=== PATIENT | female | born 1960 | race Caucasian/White ===

== ENCOUNTER 2019-02-25 15:31 | Inpatient (IN) | payer MEDICARE, OTHER ==
[~2019-02-25] VITALS: Ht 175.3 cm; Wt 72.6 kg
[2019-02-25 16:31] LABS: BASOPHILS # (AUTO) 0.1 (0.0-0.1); BASOPHILS % 0.5 % (0.0-1.0); EOSINOPHILS # (AUTO) 0.1 (0.0-0.4); HEMATOCRIT 40.6 % (34.2-44.1); HEMOGLOBIN 13.2 g/dL (12.0-16.0); LYMPHOCYTES # (AUTO) 1.2 (1.0-3.2); LYMPHOCYTES % 10.8 % (18.0-39.1); MEAN CORPUSCULAR HGB CONC 32.5 g/dL (31-35); MEAN CORPUSCULAR VOLUME 95.3 fL (81-99); MONOCYTES % 9.1 % (4.4-11.3); NEUTROPHILS # (AUTO) 8.6 (2.1-6.9); NEUTROPHILS % 78.2 % (38.7-80.0); PLATELET COUNT 277 x10e3/uL (140-360); RED BLOOD COUNT 4.26 x10e6/uL (3.6-5.1); RED CELL DISTRIBUTION WIDTH 12.9 % (11.7-14.4)
[2019-02-25 16:40] LABS: LEUKOCYTE ESTERASE ,URINE NEGATIVE (NEGATIVE); NITRITE,URINE NEGATIVE (NEGATIVE); PROTEIN,URINE DIPSTICK NEGATIVE (NEGATIVE)
[2019-02-25 16:42] LABS: BILIRUBIN,URINE NEGATIVE (NEGATIVE); CLARITY,URINE SL CLOUDY (CLEAR); COLOR,URINE YELLOW (YELLOW); KETONES,URINE 1+ (NEGATIVE); URINE UROBILINOGEN 0.2 mg/dL (0.2 - 1)
[2019-02-25 16:44] LABS: PREGNANCY TEST, URINE NEGATIVE (NEGATIVE)
[2019-02-25 16:52] LABS: ALANINE AMINOTRANSFERASE 11 IU/L (0-55); ALBUMIN 3.7 g/dL (3.5-5.0); ALBUMIN/GLOBULIN RATIO 1.1 (0.8-2.0); ALKALINE PHOSPHATASE 80 IU/L (40-150); ANION GAP 13.7 mmol/L (8-16); BLOOD UREA NITROGEN 6 mg/dL (7-26); BUN/CREATININE RATIO 8 (6-25); CALCIUM 9.4 mg/dL (8.4-10.2); CARBON DIOXIDE 27 mmol/L (22-29); CHLORIDE 102 mmol/L (98-107); CREATININE, SERUM 0.74 mg/dL (0.57-1.11); EST GLOMERULAR FILTRATION RATE > 60 ML/MIN (60-); GLUCOSE 100 mg/dL (74-118); POTASSIUM 3.7 mmol/L (3.5-5.1); SODIUM 139 mmol/L (136-145)
[2019-02-25 17:00] LABS: BACTERIA,URINE MODERATE /HPF; EPITHELIAL CELLS,URINE MODERATE /LPF; RBC,URINE 0-5 /HPF (0-5)
[2019-02-25] MEDS ORDERED: LIDOCAINE 4% PATCH TP ONE (18:45)
[2019-02-25] MEDS ORDERED: BUPIVACAINE HCL 0.5% INJ 30 ML VIAL INJ ONE (18:45)
[2019-02-25] MEDS ORDERED: BUPIVACAINE HCL 0.5% 10ML MPF VIAL INJ ONE (18:50)
[2019-02-25] MEDS ORDERED: ONDANSETRON HCL INJ 2MG/ML 2ML 2 MG/ML VIAL IV STA (18:57)
[2019-02-25] MEDS ORDERED: MORPHINE SULFATE 2 MG/ML SYR 1ML IV ONE (18:57)
[2019-02-25] MEDS ORDERED: KETOROLAC TROMETHAMINE 30 MG/ML VIAL IV STA (18:57)
[2019-02-25] MEDS: ONDANSETRON HCL INJ 2MG/ML 2ML 2 MG/ML VIAL IV ONE ×2 (19:22→19:23)
[2019-02-25] MEDS: KETOROLAC TROMETHAMINE 30 MG/ML VIAL IV ONE ×2 (19:22→19:23)
--- NOTE | 2019-02-25 21:13 | Diagnostic Imaging Report ---
EXAM: CT Chest, Abdomen and Pelvis WITH contrast INDICATION: Back pain, shortness of breath COMPARISON: None. TECHNIQUE: Chest, abdomen and pelvis were scanned utilizing a multidetector helical scanner from the lung apex to the pubic symphysis before and after administration of IV contrast. Coronal and sagittal reformations were obtained. Routine protocol was performed. Scan was performed when during portal venous phase. Dose modulation, iterative reconstruction, and/or weight based adjustment of the mA/kV was utilized to reduce the radiation dose to as low as reasonably achievable. IV CONTRAST: 100 mL of Isovue-370 ORAL CONTRAST: None RADIATION DOSE: Total DLP: 614.47 mGy*cm Estimated effective dose: (DLP x 0.015 x size factor) mSv COMPLICATIONS: None FINDINGS: LINES and TUBES: None. LUNGS AND AIRWAYS: No focal pulmonary opacity. There is patchy groundglass opacity at the lung bases, greater on the right, which may represent small airway disease, air trapping or atelectasis. There is minimal pleural parenchymal scarring greater in the right apex. Trachea and main bronchi are clear. PLEURA: The pleural spaces are clear. HEART AND MEDIASTINUM: There is a 5 mm hypodensity in the left thyroid lobe. No mediastinal, hilar or axillary lymphadenopathy. The heart is normal in size.. No thoracic aortic aneurysm or dissection. Ascending aorta measures 3.0 cm, Main pulmonary artery 2.6 cm, normal. Although the examination does not appear to have been performed with PE protocol, there are filling defects seen at the bifurcations of the right and left main pulmonary arteries compatible with pulmonary emboli. HEPATOBILIARY: There is a somewhat ill-defined heterogeneous and partially enhancing mass in the posterior dome of the right lobe of the liver, measuring 6.4 x 6.4 x 4.4 cm. There is central low density suggesting sclerosis. No other hepatic masses are seen. No biliary ductal dilation. GALLBLADDER: No radio-opaque stones or sludge. No wall thickening. SPLEEN: No splenomegaly. PANCREAS: No focal masses or ductal dilatation. Hypodensity near the pancreatic head is likely related to the adjacent duodenum. ADRENALS: No adrenal nodules KIDNEYS/URETERS: Kidneys enhance symmetrically. No hydronephrosis. No cystic or solid mass lesions. No stones. GI TRACT: No abnormal distention, wall thickening, or evidence of bowel obstruction. Appendix is not specifically visualized. PELVIC ORGANS/BLADDER: Urinary bladder unremarkable. Uterine fundus is prominent, likely related fibroid uterus. LYMPH NODES: No dominant lymph node mass seen in the abdomen, retroperitoneum or pelvis. VESSELS: The abdominal aorta is unremarkable with no aneurysm or dissection. PERITONEUM / RETROPERITONEUM: No pneumoperitoneum or ascites. BONES: No acute or suspicious bony lesions. There is mild degenerative change lower lumbar spine. A small sclerotic focus is seen in the proximal right femur. SOFT TISSUES: Superficial surrounding soft tissue shows a 1.5 cm asymmetric density in the right breast (series 2, image 34).. Findings were discussed with Dr. Conway in the emergency room on 02/25/2019 at 9:05 PM. IMPRESSION: 1. Filling defects in the bilateral main pulmonary artery bifurcations compatible with pulmonary emboli. No dilatation of the main pulmonary artery or obvious evidence for right heart strain. 2. Indeterminate 6.4 cm mass in the right lobe of the liver concerning for neoplasm. 3. 1.5 cm asymmetric density in the right breast. This is of indeterminate significance but correlation with mammography is recommended. Signed by: Dr. Alberto Bazzi M.D. on 02/25/2019 9:10 PM
[2019-02-25] MEDS ORDERED: SODIUM CHLORIDE FLUSH 10 ML SYR INJ PRN (21:15)
[2019-02-25] MEDS ORDERED: HEPARIN SOD (PORCINE) 5,000 UNIT/ML VIAL IV ONE (21:15)
[2019-02-25] MEDS: HYDROMORPHONE 1MG/1ML INJ IV PRN (21:30)
[2019-02-25] MEDS: ONDANSETRON HCL INJ 2MG/ML 2ML 2 MG/ML VIAL IV PRN (21:30)
[2019-02-25 21:57] LABS: INR 0.94; PROTHROMBIN TIME 13.1 seconds (11.9-14.5)
[2019-02-25 21:58] LABS: PARTIAL THROMBOPLASTIN TIME 27.5 seconds (23.8-35.5)
[2019-02-25 22:19] LABS: CREATINE KINASE MB 0.7 ng/mL (0-5.0)
[2019-02-25] MEDS: HEPARIN 25,000 UNIT 1,200 UNIT in DEXTROSE 5% 250ML 250 ML IV SCH (22:28)
[2019-02-25] MEDS ORDERED: SODIUM CHLORIDE 0.9% 50ML 50 ML ONE (23:15)
[2019-02-25] MEDS ORDERED: IOPAMIDOL 370 MG/ML 200 ML INFUS..BTL INJ ONE (23:16)
[2019-02-26] MEDS: HYDROMORPHONE 1MG/1ML INJ IV PRN ×6 (00:42→21:31)
[2019-02-26 01:23] LABS: CREATINE KINASE MB 0.5 ng/mL (0-5.0)
[2019-02-26] MEDS ORDERED: ALBUTEROL SULFATE HFA 8GM INHALATION AEROSOL INH PRN (03:00)
[2019-02-26] MEDS: ALBUTEROL/IPRATROPIUM 3 ML NEB NEB PRN (03:30)
[2019-02-26 05:08] LABS: BASOPHILS # (AUTO) 0.1 (0.0-0.1); BASOPHILS % 0.4 % (0.0-1.0); EOSINOPHILS # (AUTO) 0.2 (0.0-0.4); HEMATOCRIT 35.3 % (34.2-44.1); HEMOGLOBIN 11.7 g/dL (12.0-16.0); LYMPHOCYTES # (AUTO) 1.6 (1.0-3.2); LYMPHOCYTES % 14.1 % (18.0-39.1); MEAN CORPUSCULAR HEMOGLOBIN 31.2 pg (28-32); MEAN CORPUSCULAR HGB CONC 33.1 g/dL (31-35); MEAN CORPUSCULAR VOLUME 94.1 fL (81-99); MONOCYTES # (AUTO) 1.4 (0.2-0.8); MONOCYTES % 12.6 % (4.4-11.3); NEUTROPHILS # (AUTO) 7.9 (2.1-6.9); NEUTROPHILS % 70.5 % (38.7-80.0); PLATELET COUNT 246 x10e3/uL (140-360); RED BLOOD COUNT 3.75 x10e6/uL (3.6-5.1); RED CELL DISTRIBUTION WIDTH 12.9 % (11.7-14.4)
[2019-02-26 05:34] LABS: ALANINE AMINOTRANSFERASE 9 IU/L (0-55); ALBUMIN 3.1 g/dL (3.5-5.0); ALBUMIN/GLOBULIN RATIO 1.1 (0.8-2.0); ALKALINE PHOSPHATASE 64 IU/L (40-150); ANION GAP 13.2 mmol/L (8-16); BLOOD UREA NITROGEN 7 mg/dL (7-26); BUN/CREATININE RATIO 10 (6-25); CALCIUM 8.8 mg/dL (8.4-10.2); CARBON DIOXIDE 25 mmol/L (22-29); CHLORIDE 102 mmol/L (98-107); CREATININE, SERUM 0.69 mg/dL (0.57-1.11); EST GLOMERULAR FILTRATION RATE > 60 ML/MIN (60-); GLUCOSE 117 mg/dL (74-118); POTASSIUM 3.2 mmol/L (3.5-5.1); SODIUM 137 mmol/L (136-145)
[2019-02-26] MEDS ORDERED: LORAZEPAM INJ 2 MG/ML VIAL IV PRN (05:45)
[2019-02-26] MEDS: ONDANSETRON HCL INJ 2MG/ML 2ML 2 MG/ML VIAL IV PRN ×5 (05:48→21:32)
[2019-02-26 06:06] LABS: INR 1.02; PROTHROMBIN TIME 13.9 seconds (11.9-14.5)
[2019-02-26 06:56] LABS: CREATINE KINASE MB 0.5 ng/mL (0-5.0)
[2019-02-26 07:04] LABS: PARTIAL THROMBOPLASTIN TIME > 200.0 seconds (23.8-35.5)
--- NOTE | 2019-02-26 07:05 | NUR ---
received report from off going nurse. patient heparin drip placed on hold for one hour and will rate decreased by 200 units, to run at 1000units then recheck levels in 6 hours per protcol.
--- NOTE | 2019-02-26 07:05 | NUR ---
Lab reports PTT >200, stopping Heparin at this time.
[2019-02-26] MEDS ORDERED: POTASSIUM CHLORIDE 20MEQ/100ML 100 ML IV ONE (11:00)
[2019-02-26] MEDS ORDERED: SODIUM CHLORIDE 0.9% 250ML 250 ML ONE (11:31)
[2019-02-26] MEDS ORDERED: ESTRADIOL1 MG PO (15:45)
[2019-02-26] MEDS ORDERED: SUCRALFATE1 GM PO (15:45)
[2019-02-26] MEDS ORDERED: PROGESTERONE100 MG PO (15:45)
[2019-02-26] MEDS ORDERED: ESCITALOPRAM OX10 MG PO (15:45)
[2019-02-26] MEDS ORDERED: NEXIUM40 MG PO (15:45)
[2019-02-26 15:50] VITALS: BP 104/62
--- NOTE | 2019-02-26 19:00 | NUR ---
Report and walking rounds completed, Patient in bed with spouse at bedside. Call light within reach. No issues or concerns at this time. Will continue to monitor.
[2019-02-26 20:00] VITALS: BP 102/57
[2019-02-26 21:10] VITALS: BP 102/57
[2019-02-26] MEDS: HEPARIN 25,000 UNIT 1,200 UNIT in DEXTROSE 5% 250ML 250 ML IV SCH (21:43)
[2019-02-26] MEDS ORDERED: HEPARIN 25,000 UNIT DRIP IV ONE (21:48)
--- NOTE | 2019-02-26 21:50 | NUR ---
Left message with answering service for Kari Becerra (Sheila) Patient requesting home meds for hormones ( patient reports missing dose has vaginal spotting), report vaginal bleeding and observed, PTT drawn, analyzer here is down and having to send sample to [facility] to be analyzed. Awaiting call back.
--- NOTE | 2019-02-26 22:10 | NUR ---
Lab called and stated that analyzer is down and sending PTT stat to [facility] for analysis. Will notify of delay in PTT results, awaiting call back
--- NOTE | 2019-02-26 22:24 | NUR ---
Dr Gardner paged through answering service. Awaiting call back.
--- NOTE | 2019-02-26 22:45 | NUR ---
Kari Becerra paged through answering service to notify of delay in PTT results, vaginal bleeding and on heparin.
--- NOTE | 2019-02-26 22:50 | NUR ---
Return call from Dr Gardner regarding vaginal bleeding ( on heparin for PE) and delay in PTT level due to analyzer if down, sent lab Stat to [facility], awaiting results. Continue to home hormones from home med list. Consult Dr Mcneil and Philly Zuluaga for vaginal bleeding.
--- NOTE | 2019-02-26 22:53 | NUR ---
Lab called and stated analyzer is up and working, if draw new PTT sample they will be able to run results.
[2019-02-27] VITALS (10 sets, daily range): BP systolic 91–120; BP diastolic 52–87
--- NOTE | 2019-02-27 | NUR ---
PTT 77.9, Per protocol no change and this second therapeutic PTT. PTT daily
--- NOTE | 2019-02-27 00:47 | Consultation ---
DATE OF CONSULTATION: 02/26/2019 HISTORY OF PRESENT ILLNESS: This is a 58 years old. She is very well known to me who has a history of UC as well as liver hemangioma, presented to the hospital because of acute PE. The patient had a CAT scan which shows a 6.4 x 6.4 x 4.4 cm mass in the right lobe of the liver and otherwise is unremarkable. She denies any rectal bleeding, diarrhea along with this problem and her medical problem again significant for history of UC, history of liver hemangioma. ALLERGIES: NONE. SOCIAL HISTORY: No alcohol use. FAMILY HISTORY: Noncontributory. REVIEW OF SYSTEMS: At this point, she denies any chest pain or shortness of breath. Denies any dysphagia, odynophagia. Denies any dysuria, hematuria, or any kind of syncopal episode. PHYSICAL EXAMINATION: GENERAL: Awake, alert, appears to be stable, not in acute distress at this point. VITAL SIGNS: Afebrile currently without vital signs. HEAD, EYES, EARS, NOSE, AND THROAT: Normocephalic, atraumatic. Sclerae are anicteric. NECK: Supple. HEART: Regular. LUNGS: Clear. ABDOMEN: Soft. It is nondistended. At this point, it is nontender. EXTREMITIES: No cyanosis. No clubbing. LABORATORY VALUES: Today is significant for a potassium of 3.2. Liver enzymes normal. CBC was okay on admissions. IMPRESSION: 1. PE. 2. History of UC. 3. History of liver hemangioma. RECOMMENDATIONS: . Hilario Perez MD DHD/MODL /[id number] cc: Hilario Perez MD
[2019-02-27] MEDS: ONDANSETRON HCL INJ 2MG/ML 2ML 2 MG/ML VIAL IV PRN ×2 (02:45→06:45)
[2019-02-27] MEDS: HYDROMORPHONE 1MG/1ML INJ IV PRN ×5 (02:45→22:27)
[2019-02-27 05:28] LABS: BASOPHILS # (AUTO) 0.1 (0.0-0.1); BASOPHILS % 0.5 % (0.0-1.0); EOSINOPHILS # (AUTO) 0.3 (0.0-0.4); EOSINOPHILS % 2.4 % (0.0-6.0); HEMATOCRIT 34.4 % (34.2-44.1); LYMPHOCYTES # (AUTO) 1.6 (1.0-3.2); LYMPHOCYTES % 14.2 % (18.0-39.1); MEAN CORPUSCULAR HEMOGLOBIN 30.6 pg (28-32); MEAN CORPUSCULAR VOLUME 95.6 fL (81-99); MONOCYTES # (AUTO) 1.3 (0.2-0.8); MONOCYTES % 11.9 % (4.4-11.3); NEUTROPHILS # (AUTO) 7.7 (2.1-6.9); NEUTROPHILS % 70.5 % (38.7-80.0); PLATELET COUNT 242 x10e3/uL (140-360); RED CELL DISTRIBUTION WIDTH 12.8 % (11.7-14.4)
[2019-02-27 05:42] LABS: ANION GAP 11.5 mmol/L (8-16); BLOOD UREA NITROGEN 7 mg/dL (7-26); BUN/CREATININE RATIO 11 (6-25); CARBON DIOXIDE 24 mmol/L (22-29); CHLORIDE 103 mmol/L (98-107); CREATININE, SERUM 0.66 mg/dL (0.57-1.11); EST GLOMERULAR FILTRATION RATE > 60 ML/MIN (60-); GLUCOSE 95 mg/dL (74-118); POTASSIUM 3.5 mmol/L (3.5-5.1); SODIUM 135 mmol/L (136-145)
--- NOTE | 2019-02-27 16:00 | NUR ---
PT REQUESTED TO CONSULT WITH [employer] ANALYST FARHANA AND TALKED DR Kari KHAN HE SAID NOW SHE HERE WITH ANOTHER PROBLEM SHE DONT NEED THE CONSULTATION TODAY
[2019-02-27] MEDS: WARFARIN SOD 5 MG TAB PO SCH ×2 (16:29→17:00)
--- NOTE | 2019-02-27 17:00 | NUR ---
PAGED DR MEDINA TO NOTIFY THAT PT REFUSED THE WARFARIN AND THE RADIOLOGY DR RECOMMENDING MAMMOGRAM THEY WANTED TO CANCEL US ON BREAST
--- NOTE | 2019-02-27 19:04 | NUR ---
PT RESTING ON BED BED SIDE REPORT GIVEN TO ONCOMING NURSE
[2019-02-27] MEDS: ALBUTEROL/IPRATROPIUM 3 ML NEB NEB PRN (19:54)
[2019-02-27] MEDS: HEPARIN 25,000 UNIT 1,200 UNIT in DEXTROSE 5% 250ML 250 ML IV SCH (22:05)
[2019-02-28] VITALS (8 sets, daily range): BP systolic 91–120; BP diastolic 50–68
[2019-02-28] MEDS: HYDROMORPHONE 1MG/1ML INJ IV PRN ×4 (02:45→21:50)
[2019-02-28 05:54] LABS: INR 0.98; PROTHROMBIN TIME 13.5 seconds (11.9-14.5)
--- NOTE | 2019-02-28 06:35 | NUR ---
PTT 77.3, no change to heparin drip, current rate 10ml/hr.
[2019-02-28] MEDS: ALBUTEROL/IPRATROPIUM 3 ML NEB NEB PRN ×2 (06:55→21:30)
--- NOTE | 2019-02-28 07:10 | NUR ---
RCD PT AT BED PT IS ALERT AND ORIENTED PT RESTING ON BED IV PATENT BY SALINE FLUSH BED LOW AND LOCKED CALL LIGHT IN REACH
--- NOTE | 2019-02-28 11:00 | NUR ---
PAGED DR DIAZ TO NOTIFY THAT THE PT REFUSED THE WARFARIN AND LEFT THE MESSAGE
[2019-02-28] MEDS ORDERED: ONDANSETRON HCL 4 MG ORAL DISINTEGRATING TAB PO PRN (11:30)
--- NOTE | 2019-02-28 16:00 | NUR ---
PAGED DR DIAZ AND NOTIFIED PT REFUSED WARFARIN AND THE RADIOLOGY DR NOT DONE THE US BREAST HE RECOMMENDED MAMMOGRAM
[2019-02-28] MEDS: WARFARIN SOD 5 MG TAB PO SCH (17:00)
--- NOTE | 2019-02-28 19:05 | NUR ---
PT RESTING ON BED BED SIDE REPORT GIVEN TO ONCOMING NURSE
[2019-02-28] MEDS: HEPARIN 25,000 UNIT 1,200 UNIT in DEXTROSE 5% 250ML 250 ML IV SCH (21:57)
--- NOTE | 2019-03-01 03:15 | Consultation ---
DATE OF CONSULTATION: 02/28/2019 Cardiology Consult Note. REASON FOR CONSULT: Acute pulmonary embolism. CHIEF COMPLAINT: Chest pain. HISTORY OF PRESENT ILLNESS: The patient is a 58-year-old female with history of ulcerative colitis and liver hemangioma was presenting with chest pain and was found to have acute pulmonary embolism. Hemodynamically stable. Remains in normal sinus rhythm. No prior history of PE. REVIEW OF SYSTEMS: As above otherwise negative. PAST MEDICAL HISTORY: Ulcerative colitis, liver hemangioma. PAST SURGICAL HISTORY: Noncontributory. SOCIAL HISTORY: She does not smoke, drink, or abuse drugs. FAMILY HISTORY: Noncontributory. OUTPATIENT MEDICATIONS: Reviewed. ALLERGIES: DATA REVIEWED. NO KNOWN DRUG ALLERGIES. OBJECTIVE: VITAL SIGNS: Temperature afebrile, pulse 70, respiratory rate 18, blood pressure 104/58, saturating 97% on 2 L nasal cannula. GENERAL: Middle-aged female, well developed, well nourished, no acute distress. CARDIOVASCULAR: Regular rate and rhythm. No murmurs, rubs, or gallops. LUNGS: Clear to auscultation bilaterally. ABDOMEN: Soft, nontender, and nondistended. NEURO AND PSYCH: Alert, oriented to person, place, and time. Normal affect. INPATIENT MEDICATIONS: Reviewed. LABORATORY DATA: Reviewed. TELEMETRY DATA: Reviewed, shows normal sinus rhythm. IMAGING DATA: Reviewed, shows acute pulmonary emboli. ASSESSMENT: 1. Acute pulmonary embolus. 2. History of ulcerative colitis. 3. History of liver hemangioma. PLAN: Continue IV heparin. I recommend changing to apixaban 10 mg b.i.d. starting tomorrow. If no further procedure is a plan, the patient remains hemodynamically stable. Echocardiogram and lower extremity Dopplers are pending. Thank you for this consult. We will continue to follow. MD BRANDON Orellana/MODJada /[id number]
[2019-03-01] MEDS: HYDROMORPHONE 1MG/1ML INJ IV PRN ×4 (04:30→21:10)
[2019-03-01 05:38] LABS: BASOPHILS # (AUTO) 0.1 (0.0-0.1); BASOPHILS % 0.7 % (0.0-1.0); EOSINOPHILS # (AUTO) 0.5 (0.0-0.4); EOSINOPHILS % 6.5 % (0.0-6.0); HEMATOCRIT 35.3 % (34.2-44.1); HEMOGLOBIN 11.6 g/dL (12.0-16.0); LYMPHOCYTES # (AUTO) 1.6 (1.0-3.2); LYMPHOCYTES % 21.9 % (18.0-39.1); MEAN CORPUSCULAR HEMOGLOBIN 31.4 pg (28-32); MEAN CORPUSCULAR HGB CONC 32.9 g/dL (31-35); MEAN CORPUSCULAR VOLUME 95.4 fL (81-99); MONOCYTES # (AUTO) 0.8 (0.2-0.8); MONOCYTES % 11.3 % (4.4-11.3); NEUTROPHILS # (AUTO) 4.4 (2.1-6.9); NEUTROPHILS % 59.2 % (38.7-80.0); PLATELET COUNT 293 x10e3/uL (140-360); RED CELL DISTRIBUTION WIDTH 12.8 % (11.7-14.4)
[2019-03-01 05:51] LABS: INR 0.88; PROTHROMBIN TIME 12.4 seconds (11.9-14.5)
[2019-03-01 06:31] LABS: ANION GAP 12.5 mmol/L (8-16); BLOOD UREA NITROGEN 5 mg/dL (7-26); BUN/CREATININE RATIO 7 (6-25); CALCIUM 9.1 mg/dL (8.4-10.2); CARBON DIOXIDE 27 mmol/L (22-29); CHLORIDE 101 mmol/L (98-107); CREATININE, SERUM 0.71 mg/dL (0.57-1.11); EST GLOMERULAR FILTRATION RATE > 60 ML/MIN (60-); GLUCOSE 103 mg/dL (74-118); POTASSIUM 3.5 mmol/L (3.5-5.1); SODIUM 137 mmol/L (136-145)
--- NOTE | 2019-03-01 06:45 | NUR ---
PTT 55.7, no change to heparin drip, current rate 10ml/hr.
[2019-03-01 08:00] VITALS: BP 95/67
[2019-03-01] MEDS: LUBIPROSTONE 24 MCG CAP PO SCH ×2 (08:49→17:20)
[2019-03-01] MEDS: PANTOPRAZOLE SOD 40 MG TABEC PO SCH (08:49)
[2019-03-01] MEDS: MESALAMINE 0.375 GM CAPCR PO SCH (08:49)
[2019-03-01 11:16] VITALS: BP 95/67
[2019-03-01 12:13] VITALS: BP 94/64
--- OUTSIDE RECORDS SUMMARY | 2019-03-01 12:54 | XMS REPORT ---
Author Author [facility] Address Unknown Phone Unavailable Care Team Providers Care Camera Maker Name Role Phone Sam GUPTA Unavailable Unavailable Laurie JACOBSON Unavailable Unavailable Payers Payer Name Policy Type Policy Number Effective Date Expiration Date Problems This patient has no known problems. Allergies, Adverse Reactions, Alerts Allergy Name Allergy Type Status Severity Reaction(s) Onset Date Inactive Date Treating Clinician Comments No Known Allergies DA Active U 2011-06-27 00:00:00 Medications This patient has no known medications. Results Test Description Test Time Test Comments Text Results Atomic Results Result Comments CT ABDOMEN/PELVIS W 2019-02-25 20:49:00 [facility] [address] [place], [place] [address] Patient Name: YUVAL ARCHULETA MR #: [id number] : 1960 Age/Sex: 58/F Req #: [id number] Adm Physician: Ordered by: ANNE MARIE ORTEGA [employer] SEC[employer]ITY CONSULTANT Report #: [id number] Location: ER Room/Bed: Procedure: [id number] CT/CT ABDOMEN/PELVIS W Exam Date: Exam Time: REPORT STATUS: Signed EXAM: CT Chest, Abdomen and Pelvis WITH contrast INDICATION: Back pain, shortness of breath COMPARISON: None. TECHNIQUE: Chest, abdomen and pelvis were scanned utilizing a multidetector helical scanner from the lung apex to the pubic symphysis before and after administration of IV contrast. Coronal and sagittal reformations were obtained. Routine protocol was performed. Scan was performed when during portal venous phase. Dose modulation, iterative reconstruction, and/or weight based adjustment of the mA/kV was utilized to reduce the radiation dose to as low as reasonably achievable. IV CONTRAST: 100 mL of Isovue-370 ORAL CONTRAST: None RADIATION DOSE: Total DLP: 614.47 mGy*cm Estimated effective dose: (DLP x 0.015 x size factor) mSv COMPLICATIONS: None FINDINGS: LINES and TUBES: None. LUNGS AND AIRWAYS: No focal pulmonary opacity. There is patchy groundglass opacity at the lung bases, greater on the right, which may represent small airway disease, air trapping or atelectasis. There is minimal pleural parenchymal scarring greater in the right apex. Trachea and main bronchi are clear. PLEURA: The pleural spaces are clear. HEART AND MEDIASTINUM: There is a 5 mm hypodensity in the left thyroid lobe. No mediastinal, hilar or axillary lymphadenopathy. The heart is normal in size.. No thoracic aortic aneurysm or dissection. Ascending aorta measures 3.0 cm, Main pulmonary artery 2.6 cm, normal. Although the examination does not appear to have been performed with PE protocol, there are filling defects seen at the bifurcations of the right and left main pulmonary arteries compatible with pulmonary emboli. HEPATOBILIARY: There is a somewhat ill-defined heterogeneous and partially enhancing mass in the posterior dome of the right lobe of the liver, measuring 6.4 x 6.4 x 4.4 cm. There is central low density suggesting sclerosis. No other hepatic masses are seen. No biliary ductal dilation. GALLBLADDER: No radio-opaque stones or sludge. No wall thickening. SPLEEN: No splenomegaly. PANCREAS: No focal masses or ductal dilatation. Hypodensity near the pancreatic head is likely related to the adjacent duodenum. ADRENALS: No adrenal nodules KIDNEYS/URETERS: Kidneys enhance symmetrically. No hydronephrosis. No cystic or solid mass lesions. No stones. GI TRACT: No abnormal distention, wall thickening, or evidence of bowel obstruction. Appendix is not specifically visualized. PELVIC ORGANS/BLADDER: Urinary bladder unremarkable. Uterine fundus is prominent, likely related fibroid uterus. LYMPH NODES: No dominant lymph node mass seen in the abdomen, retroperitoneum or pelvis. VESSELS: The abdominal aorta is unremarkable with no aneurysm or dissection. PERITONEUM / RETROPERITONEUM: No pneumoperitoneum or ascites. BONES: No acute or suspicious bony lesions. There is mild degenerative change lower lumbar spine. A small sclerotic focus is seen in the proximal right femur. SOFT TISSUES: Superficial surrounding soft tissue shows a 1.5 cm asymmetric density in the right breast (series 2, image 34).. Findings were discussed with Dr. Conway in the emergency room on 02/25/2019 at 9:05 PM. IMPRESSION: 1. Filling defects in the bilateral main pulmonary artery bifurcations compatible with pulmonary emboli. No dilatation of the main pulmonary artery or obvious evidence for right heart strain. 2. Indeterminate 6.4 cm mass in the right lobe of the liver concerning for neoplasm. 3. 1.5 cm asymmetric density in the right breast. This is of indeterminate significance but correlation with mammography is recommended. Signed by: Dr. Alberto Ruano M.D. on 02/25/2019 9:10 PM Dictated By: ALBERTO RUANO MD 09 Transcribed By: AMINA on 02/25/192109 COPY TO: ANNE MARIE ORTEGA NP CT CHEST W 2019-02-25 20:49:00 [place] [address] Patient Name: YUVAL ARCHULETA MR #: [id number] : 1960 Age/Sex: 58/F Req #: [id number] Adm Physician: Ordered by: ANNE MARIE ORTEGA NP Report #: [id number] Location: ER Room/Bed: Procedure: [id number] CT/CT CHEST W Exam Date: Exam Time: REPORT STATUS: Signed EXAM: CT Chest, Abdomen and Pelvis WITH contrast INDICATION: Back pain, shortness of breath COMPARISON: None. TECHNIQUE: Chest, abdomen and pelvis were scanned utilizing a multidetector helical scanner from the lung apex to the pubic symphysis before and after administration of IV contrast. Coronal and sagittal reformations were obtained. Routine protocol was performed. Scan was performed when during portal venous phase. Dose modulation, iterative reconstruction, and/or weight based adjustment of the mA/kV was utilized to reduce the radiation dose to as low as reasonably achievable. IV CONTRAST: 100 mL of Isovue-370 ORAL CONTRAST: None RADIATION DOSE: Total DLP: 614.47 mGy*cm Estimated effective dose: (DLP x 0.015 x size factor) mSv COMPLICATIONS: None FINDINGS: LINES and TUBES: None. LUNGS AND AIRWAYS: No focal pulmonary opacity. There is patchy groundglass opacity at the lung bases, greater on the right, which may represent small airway dise ase, air trapping or atelectasis. There is minimal pleural parenchymal scarring greater in the right apex. Trachea and main bronchi are clear. PLEURA: The pleural spaces are clear. HEART AND MEDIASTINUM: There is a 5 mm hypodensity in the left thyroid lobe. No mediastinal, hilar or axillary lymphadenopathy. The heart is normal in size.. No thoracic aortic aneurysm or dissection. Ascending aorta measures 3.0 cm, Main pulmonary artery 2.6 cm, normal. Although the examination does not appear to have been performed with PE protocol, there are filling defects seen at the bifurcations of the right and left main pulmonary arteries compatible with pulmonary emboli. HEPATOBILIARY: There is a somewhat ill-defined heterogeneous and partially enhancing mass in the posterior dome of the right lobe of the liver, measuring 6.4 x 6.4 x 4.4 cm. There is central low density suggesting sclerosis. No other hepatic masses are seen. No biliary ductal dilation. GALLBLADDER: No radio-opaque stones or sludge. No wall thickening. SPLEEN: No splenomegaly. PANCREAS: No focal masses or ductal dilatation. Hypodensity near the pancreatic head is likely related to the adjacent duodenum. ADRENALS: No adrenal nodules KIDNEYS/URETERS: Kidneys enhance symmetrically. No hydronephrosis. No cystic or solid mass lesions. No stones. GI TRACT: No abnormal distention, wall thickening, or evidence of bowel obstruction. Appendix is not specifically visualized. PELVIC ORGANS/BLADDER: Urinary bladder unremarkable. Uterine fundus is prominent, likely related fibroid uterus. LYMPH NODES: No dominant lymph node mass seen in the abdomen, retroperitoneum or pelvis. VESSELS: The abdominal aorta is unremarkable with no aneurysm or dissection. PERITONEUM / RETROPERITONEUM: No pneumoperitoneum or ascites. BONES: No acute or suspicious bony lesions. There is mild degenerative change lower lumbar spine. A small sclerotic focus is seen in the proximal right femur. SOFT TISSUES: Superficial surrounding soft tissue shows a 1.5 cm asymmetric density in the right breast (series 2, image 34).. Findings were discussed with Dr. Conway in the emergency room on 02/25/2019 at 9:05 PM. IMPRESSION: 1. Filling defects in the bilateral main pulmonary artery bifurcations compatible with pulmonary emboli. No dilatation of the main pulmonary artery or obvious evidence for right heart strain. 2. Indeterminate 6.4 cm mass in the right lobe of the liver concerning for neopla sm. 3. 1.5 cm asymmetric density in the right breast. This is of indeterminate significance but correlation with mammography is recommended. Signed by: Dr. Alberto Ruano M.D. on 02/25/2019 9:10 PM Dictated By: ALBERTO RUANO MD 09 Transcribed By: AMINA on 02/25/192109 COPY TO: ANNE MARIE ORTEGA NP CARCINOEMBRYONIC ANTIGEN (CEA) 2018-06-20 14:29:00 CARCINOEMBRYONIC ANTIGEN (BEAKER) (test qhwr=213) 0.9 ng/mL 0.0-5.0 ALPHA FETOPROTEIN (AFP), TUMOR [id number] 14:29:00* Test Item Value Reference Range Comments ALPHA-FETOPROTEIN (BEAKER) (test stvw=2219) 3.1 ng/mL <10.0 HEPATIC FUNCTION [id number] 14:16:00* Test Item Value Reference Range Comments TOTAL PROTEIN (BEAKER) (test jndu=523) 6.9 gm/dL 6.0-8.3 ALBUMIN (BEAKER) (test uhcg=3535) 4.1 g/dL 3.5-5.0 BILIRUBIN TOTAL (BEAKER) (test jajh=531) 0.3 mg/dL 0.2-1.2 BILIRUBIN DIRECT (BEAKER) (test sulf=109) 0.2 mg/dL 0.1-0.5 ALKALINE PHOSPHATASE (BEAKER) (test kfib=663) 61 U/L 40-150 AST (SGOT) (BEAKER) (test tzlh=006) 16 U/L 5-34 ALT (SGPT) (BEAKER) (test tthv=846) 14 U/L 6-55 BASIC METABOLIC [id number] 14:16:00* Test Item Value Reference Range Comments SODIUM (BEAKER) (test bnsq=283) 140 meq/L 136-145 POTASSIUM (BEAKER) (test fpdb=278) 4.1 meq/L 3.5-5.1 CHLORIDE (BEAKER) (test vgkh=560) 105 meq/L 98-107 CO2 (BEAKER) (test vtku=720) 28 meq/L 22-29 BLOOD UREA NITROGEN (BEAKER) (test vbph=315) 12 mg/dL 7-21 CREATININE (BEAKER) (test clhc=051) 0.72 mg/dL 0.57-1.25 GLUCOSE RANDOM (BEAKER) (test zupo=106) 78 mg/dL 70-105 CALCIUM (BEAKER) (test hxxv=857) 9.6 mg/dL 8.4-10.2 EGFR (BEAKER) (test agie=6334) 84 mL/min/1.73 sq m ESTIMATED GFR IS NOT ACCURATE CREATININE CLEARANCE IN PREDICTING GLOMERULAR FILTRATION RATE. ESTIMATED GFR IS NOT APPLICABLE FOR DIALYSIS PATIENTS. CBC W/PLT COUNT & AUTO [id number] 13:50:00* Test Item Value Reference Range Comments WHITE BLOOD CELL COUNT (BEAKER) (test rvrn=637) 8.8 K/ L 3.5-10.5 RED BLOOD CELL COUNT (BEAKER) (test hrev=171) 4.29 M/ L 3.93-5.22 HEMOGLOBIN (BEAKER) (test jxoe=906) 13.6 GM/DL 11.2-15.7 HEMATOCRIT (BEAKER) (test duyz=836) 43.0 % 34.1-44.9 MEAN CORPUSCULAR VOLUME (BEAKER) (test fepw=802) 100.2 fL 79.4-94.8 MEAN CORPUSCULAR HEMOGLOBIN (BEAKER) (test khto=706) 31.7 pg 25.6-32.2 MEAN CORPUSCULAR HEMOGLOBIN CONC (BEAKER) (test gzta=461) 31.6 GM/DL 32.2-35.5 RED CELL DISTRIBUTION WIDTH (BEAKER) (test vldj=712) 12.4 % 11.7-14.4 PLATELET COUNT (BEAKER) (test cjgx=421) 271 K/CU MM 150-450 MEAN PLATELET VOLUME (BEAKER) (test mzaw=571) 11.2 fL 9.4-12.3 NUCLEATED RED BLOOD CELLS (BEAKER) (test xrkp=266) 0 /100 WBC 0-0 NEUTROPHILS RELATIVE PERCENT (BEAKER) (test zxwu=719) 75 % LYMPHOCYTES RELATIVE PERCENT (BEAKER) (test hvqj=816) 15 % MONOCYTES RELATIVE PERCENT (BEAKER) (test mszo=610) 8 % EOSINOPHILS RELATIVE PERCENT (BEAKER) (test jffy=727) 1 % BASOPHILS RELATIVE PERCENT (BEAKER) (test wbcn=601) 1 % NEUTROPHILS ABSOLUTE COUNT (BEAKER) (test uryc=513) 6.60 K/ L 1.56-6.13 LYMPHOCYTES ABSOLUTE COUNT (BEAKER) (test apkb=731) 1.33 K/ L 1.18-3.74 MONOCYTES ABSOLUTE COUNT (BEAKER) (test ugzi=375) 0.72 K/ L 0.24-0.36 EOSINOPHILS ABSOLUTE COUNT (BEAKER) (test lkvz=670) 0.07 K/ L 0.04-0.36 BASOPHILS ABSOLUTE COUNT (BEAKER) (test nybj=584) 0.04 K/ L 0.01-0.08 IMMATURE GRANULOCYTES-RELATIVE PERCENT (BEAKER) (test vefr=2724) 0 % 0-1 - US PELVIS [id number] 10:58:00 Patient Name: YUVAL SPENCER Unit No: [id number] EXAMS: CPT CODE: [id number] US PELVIS COMPLETE 01926 Pelvic US performed May 31, 2018. COMPARISON: None. CLINICAL HISTORY: Vaginal bleeding. DISCUSSION: Real-time michele scale sonography performed of the pelvis via the transabdominal and transvaginal approach. The uterus measures 99 x 58 x 61 mm and contains no focal myometrial abnormalities. The myometrium is diffusely heterogeneous, possibility of adenomyosis is raised. No discrete fibroid is seen. the endometrium is homogenous and measures 4 mm in thickness. The ovaries are sonographically normal in appearance with the right measuring 24 x 11 x 16 mm and the left measuring 21 x 13 x 17 mm. Subcentimeter follicles are seen bilaterally. Normal flow seen in both ovaries. No significant free fluid in seen in the cul de sac. IMPRESSION: 1. Coarse echotexture to the uterus with no discrete fibroid seen. Possible adenomyosis. at 105 Reported and signed by: Moni Alcala MD CC: Andrews Jang Technologist: Jessie Marshall RDMS Probe: Trnscrbd D/ (4186) t.SDR.NMG Orig Print D/T: S: 05/31/2018 (7427) [facility] PHYS: Andrews Sexton MD [address] : 1960 AGE: 57 SEX: F [place] [address] LOC: F.RAD PHONE #: [phone] EXAM GARETH E: 05/31/2018 STATUS: REG CLI FAX #: [phone] RAD NO: [id number] Page 1 Signed Report P atient Name: YUVAL SPENCER [facility] Unit No: [id number] EXAMS: CPT CODE: [id number] US PELVIS COMPLETE 81612 <Continued> [facility] PHYS: Andrews Sexton MD [address] : 1960 AGE: 57 SEX: F [place] [address] ACCT NO: [id number] LOC: F.RAD PHONE #: [phone] EXAM DATE: 05/12 STATUS: REG CLI FAX #: [phone] RAD NO: [id number] Page 2 Signed Report - US TRANSVAGINAL [id number] 10:58:00 Patient Name: YUVAL SPENCER Unit No: [id number] EXAMS: CPT CODE: [id number] US TRANSVAGINAL W/PELVIS 36929 Pelvic US performed May 31, 2018. COMPARISON: None. CLINICAL HISTORY: Vaginal bleeding. DISCUSSION: Real-time michele scale sonography performed of the pelvis via the transabdominal and transvaginal approach. The uterus measures 99 x 58 x 61 mm and contains no focal myometrial abnormalities. The myometrium is diffusely heterogeneous, possibility of adenomyosis is raised. No discrete fibroid is seen. the endometrium is homogenous and measures 4 mm in thickness. The ovaries are sonographically normal in appearance with the right measuring 24 x 11 x 16 mm and the left measuring 21 x 13 x 17 mm. Subcentimeter follicles are seen bilaterally. Normal flow seen in both ovaries. No significant free fluid in seen in the cul de sac. IMPRESSION: 1. Coarse echotexture to the uterus with no discrete fibroid seen. Possible adenomyosis. at 1058 Reported and signed by: Moni Alcala MD CC: Andrews Jang Technologist: Jessie Marshall RDMS Probe: [id number] Trnscrbd D/ (1058) t.DIANNER.NMG Orig Print D/T: S: 05/31/2018 (1101) [facility] NAME: YVUAL SPENCER Radiology Department PHYS: Andrews Sexton MD [address] : 1960 AGE: 57 SEX: F [place], [place] [address] LOC: F.RAD PHONE #: [phone] EXAM GARETH E: 05/31/2018 STATUS: REG CLI FAX #: [phone] RAD NO: [id number] Page 1 Signed Report P atient Name: YUVAL SPENCER Unit No: [id number] EXAMS: CPT CODE: [id number] US TRANS VAGINAL W/PELVIS 57420 <Continued> [facility] NAME: YUVAL SPENCER [facility] Radiology Department PHYS: JEMIMAJanet Andrews Jang MD [address] : 1960 AGE: 57 SEX: F [place], [place] [address] ACCT NO: [id number] LOC: LuisaRAD PHONE #: [phone] EXAM DATE: 05/12 STATUS: REG CLI FAX #: [phone] RAD NO: [id number] Page 2 Signed Report MR, ABDOMEN, [id number] 11:51:00FINAL REPORT TECHNIQUE: MRI of the abdomen WITHOUT and WITH intravenous contrast. INDICATION: 57-year-old woman with liver hemangioma and pancreatic lesion. COMPARISON: Abdomen MRI 08/15/2017. FINDINGS: LOWER THORAX: Unremarkable. LIVER: No hepatic signal abnormality. Unchanged 7.4 cm lobulated T2 hyperintense lesion in segment VII with progressive centripetal nodular enhancement, consistent with hemangioma. Unchanged subcentimeter cysts in segments VIII and .BILIARY: No biliary ductal dilatation or filling defect.SPLEEN: No splenomegaly.PANCREAS: No solid masses or ductal dilatation. Unchanged 1.1 x 0.4 cm bilobed cystic lesion in the pancreatic body. ADRENALS: No adrenal nodules.KIDNEYS/URETERS: No hydronephrosis or solid mass lesions. Unchanged subcentimeter cyst in the left kidney contains T1 hyperintense hemorrhagic/proteinaceous debris. P ERITONEUM/RETROPERITONEUM: No free fluid.LYMPH NODES: No lymphadenopathy.VESSELS : Unremarkable. GI TRACT: No distention or wall thickening. BONES AND SOFT TISSU ES: Unremarkable. 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 Unchanged hem angioma in the right hepatic lobe. Signed: Gris Patrick MDReport Verified Gareth e/Time: 04/10/2018 11:51:16 Reading Location: [facility] B1 C013Y CT Body Reading Room -[id number] 09:35:00* Test Item Value Reference Range Comments POC-CREATININE (BEAKER) (test zclm=8280) 0.8 mg/dL 0.6-1.3 [address]ED [address] [address] POC-EGFR (NOEMI) (test gdrb=7941) 74 mL/min/1.73M2 MR, ABDOMEN, [id number] 13:11:00FINAL REPORT TECHNIQUE: MRI of the abdomen WITHOUT and WITH intravenous contrast. INDICATION: 57-year-old woman with liver hemangioma and pancreatic lesion. COMPARISON: Multiple abdomen MRIs dating back to 06/17/2010, the most recent is dated 06/23/2016. FINDINGS: LOWER THORAX: Unremarkable. LIVER: No hepatic signal abnormality. Unchanged 7.4 cm lobulated T2 hyperintense lesion in segment VII with progressive peripheral nodular enhancement, consistent with hemangioma. Unchanged subcentimeter cyst in segment VIII.BILIARY: No biliary ductal dilatation or filling defect.SPLEEN: No splenomegaly.PANCREAS: No solid masses or ductal dilatation. Unchanged 1.1 x 0.4 cm bilobed cystic lesion in the p ancreatic body. ADRENALS: No adrenal nodules.KIDNEYS/URETERS: No hydronephrosis or solid mass lesions. PERITONEUM/RETROPERITONEUM: No free fluid.LYMPH NODES: No lymphadenopathy.VESSELS: Unremarkable. GI TRACT: No distention or wall thickeni ng. BONES AND SOFT TISSUES: Unremarkable. IMPRESSION:Unchanged cystic lesion in the pancreatic body, probable side branch intraductal papillary mucinous neopla sm (IPMN). Unchanged hemangioma in the right hepatic lobe. RECOMMENDATION:Follow -up abdomen MRI may be obtained in 12 months to evaluate stability of the pancre atic cystic lesion. Signed: Gris Patrick MDReport Verified Date/Time: 2017 13:11:34 Reading Location: [facility] B1 C013Y CT Body Reading Room [facility] signed by: GRIS PATRICK MD on 08/15/2017 01:11 PM POCT-CREATININE 2017-08-15 10:16:00* Test Item Value Reference Range Comments POC-CREATININE (NOEMI) (test ipfh=1870) 0.7 mg/dL 0.6-1.3 [address]ED AT [address] [address] POC-EGFR (NOEMI) (test xabj=8712) 87 mL/min/1.73M2 CARCINOEMBRYONIC ANTIGEN (CEA)2017-07-03 17:58:00* Test Item Value Reference Range Comments CARCINOEMBRYONIC ANTIGEN (CLEMENTINAAKER) (test pxot=286) 1.3 ng/mL 0.0-5.0 HEPATITIS B SURFACE [id number] 18:15:00* Test Item Value Reference Range Comments HEPATITIS B SURFACE ANTIBODY (CLEMENTINAAKER) (test ozew=124) < mIU/mL <8.0 HEPATITIS B SURFACE [id number] 18:14:00* Test Item Value Reference Range Comments HEPATITIS B SURFACE ANTIGEN (2) (NOEMI) (test utgm=9750) Nonreactive Nonreactive HEPATITIS B CORE ANTIBODY, [id number] 18:14:00* Test Item Value Reference Range Comments HEPATITIS B CORE TOTAL ANTIBODY (NOEMI) (test fdls=671) Nonreactive Nonreactive HEPATITIS A ANTIBODY, [id number] 18:14:00* Test Item Value Reference Range Comments HEPATITIS A IGG ANTIBODY (NOEMI) (test zqdo=6443) Nonreactive Nonreactive [id number] 08:23:00* Test Item Value Reference Range Comments POC-CREATININE (NOEMI) (test xobx=5330) 0.7 mg/dL 0.6-1.3 TESTED AT [facility] [address] POC-EGFR (BEAKER) (test rkco=2369) 87 mL/min/1.73M2
[2019-03-01 15:52] VITALS: BP 98/75
--- NOTE | 2019-03-01 17:15 | NUR ---
Spoke with director for radiology. Director stated that per protocol will not be able to perform US on R breast, no physical records of past mammogram to obtain for US, radiology department does not perform breast exams on inpatients. Will forward information to admitting physician, patient, and oncoming nurse.
--- NOTE | 2019-03-01 17:15 | Progress Note ---
DATE: 03/01/2019 Cardiology Progress Note SUBJECTIVE: No major events overnight. OBJECTIVE: VITAL SIGNS: Temperature afebrile, pulse 87, respiratory rate 17, blood pressure 95/64, saturating 96% on 2 L nasal cannula. GENERAL: Well developed, well nourished female in no acute distress. CARDIOVASCULAR: Regular rate and rhythm. No murmurs, rubs, or gallops. LUNGS: Clear to auscultation anteriorly. ABDOMEN: Soft, nontender, nondistended. NEURO AND PSYCH: Alert and oriented. INPATIENT MEDICATIONS: Reviewed. LABORATORY DATA: Reviewed. White blood cell count is improving. Troponins negative x3. IMAGING DATA: Reviewed. TELEMETRY DATA: Reviewed, shows normal sinus rhythm. ASSESSMENT: 1. Acute pulmonary embolism. 2. History of ulcerative colitis. 3. History of liver hemangioma. PLAN: Continue IV heparin for now. PT remains therapeutic. If no further procedures are planned, we will switch to apixaban 10 mg b.i.d. prior to discharge. Echocardiogram reviewed, shows normal LV and RV function. No significant abnormalities. The patient remained stable from a cardiovascular standpoint. Thank you for this consult. We will continue to follow. MD BRANDON Orellana/ANTONINO /[id number]
[2019-03-01 20:21] VITALS: BP 109/65
--- NOTE | 2019-03-01 20:25 | NUR ---
Patient visited in room during nursing rounds. Patient alert and oriented x3. Ambulatory in room prn. On 2L NC. at bedside visiting. Pt experiencing frequent pain on back. Will medicate accordingly. Call jackson within reach. Will monitor closely.
[2019-03-01] MEDS: APIXABAN 5 MG TABLET PO SCH (20:53)
[2019-03-01] MEDS: ALBUTEROL/IPRATROPIUM 3 ML NEB NEB PRN (22:00)
[2019-03-02 00:33] VITALS: BP 98/57
[2019-03-02] MEDS: HYDROMORPHONE 1MG/1ML INJ IV PRN ×3 (03:18→14:51)
[2019-03-02 05:28] VITALS: BP 114/62
[2019-03-02 06:08] LABS: PROTHROMBIN TIME 13.7 seconds (11.9-14.5)
[2019-03-02 07:50] VITALS: BP 103/52
[2019-03-02] MEDS: PANTOPRAZOLE SOD 40 MG TABEC PO SCH (07:56)
[2019-03-02] MEDS: APIXABAN 5 MG TABLET PO SCH (07:56)
[2019-03-02] MEDS: MESALAMINE 0.375 GM CAPCR PO SCH (07:56)
[2019-03-02] MEDS: LUBIPROSTONE 24 MCG CAP PO SCH (07:56)
--- NOTE | 2019-03-02 11:45 | NUR ---
Rounds performed, unable to have breast ultrasound d/t no mammogram report available. Started elquis. Poss D C today
[2019-03-02 12:29] VITALS: BP 97/46
--- NOTE | 2019-03-02 13:56 | NUR ---
Nutrition Screen Note RD Recommendation for Physician: Continue diet as ordered Plan of Care: RD following, monitoring for tolerance and adequacy Nutrition reason for involvement: LOS Primary Diagnose(s): itractable pain, liver mass, right pulmonary embolism PMH: ulcerative colitis, liver hemanginoma Ht:69 in Wt:160lb BMI:23.6 kg/m2 IBW:145lb +/-10% RD Assessment: (03/02/19) Chart reviewed. Labs and meds reviewed. Initial encounter with patient. Pt is reporting some nausea and she has a " SoSo" Appetite right now. Pt denies any difficulty chewing or swallowing, Pt has no known food allergies. Pt denies any significant wt loss. Current Diet: Cardiac diet Malnutrition Evaluation 03/02/19) The patient does not meet criteria for a specified degree of malnutrition at this time. Will re-evaluate at follow-up as appropriate. Diet Education Needs Assessment: Diet education not indicated. Nutrition Care Level: Low Signed: Enrique Hill RD, LD, [facility]
[2019-03-02] MEDS ORDERED: ELIQUIS5 MG PO (15:29)
[2019-03-02 15:41] VITALS: BP 105/57
[2019-03-02] MEDS ORDERED: APIXABAN 5 MG TABLET PO SCH (17:00)
--- NOTE | 2019-03-02 18:16 | Progress Note ---
DATE: 03/02/2019 SUBJECTIVE: The patient reports occasional chest pain as well as chest pain on deep inspiration. OBJECTIVE: VITAL SIGNS: Temperature 97.2 degrees, pulse 63, respiratory rate 20, blood pressure 97/46, and oxygen saturation 100% on 2 L nasal cannula. GENERAL: Awake, alert, in no distress. LUNGS: Clear to auscultation bilaterally. No wheezes or crackles. CARDIOVASCULAR: Normal rate, regular rhythm. No murmur. Normal S1, S2. ABDOMEN: Soft, nontender. EXTREMITIES: No edema. CARDIAC MEDICATIONS: Apixaban 5 mg p.o. b.i.d. LABORATORY DATA: None today. TELEMETRY: Normal sinus rhythm. IMPRESSION: 1. Acute pulmonary embolism. 2. History of ulcerative colitis. 3. History of liver hemangioma. RECOMMENDATIONS: Apixaban needs to be increased to 10 mg p.o. b.i.d. for one week prior to decreasing to 5 mg p.o. b.i.d. as treatment for acute pulmonary embolism. Echocardiogram demonstrated normal LV and RV function. There were no significant abnormalities. Monitor the patient closely on telemetry. Continue supportive care. Thank you for this consult. We will continue to follow. Alvina Aguillon MD ABS/MODL /[id number]
--- NOTE | 2019-03-02 19:31 | Consultation ---
DATE OF CONSULTATION: 02/27/[address] Tavo Gardner. HISTORY OF PRESENT ILLNESS: Marie Felder is a 58-year-old white female, referred to me for evaluation of pulmonary embolus. The patient had presented with vaginal bleed. The patient claims that she has been on estrogen and progesterone from her CERTIFIED REHABILITATION COUNSELOR physician who is also following a lump in the right breast. The patient had a mammogram. The patient is supposed to have an ultrasound. SOCIAL HISTORY: Noncontributory. FAMILY HISTORY: Noncontributory. ALLERGIES: REPORTED NONE. MEDICATIONS: At this time consist of: 1. Sodium chloride. 2. Protonix. 3. Ondansetron. 4. Mesalamine. 5. Amitiza. 6. Lorazepam. 7. Hydromorphone. 8. Albuterol. 9. Heparin. REVIEW OF SYSTEMS: HEENT: Normal. CARDIAC: Normal. RESPIRATORY: At the present time, pulmonary emboli. GI: History of a large hemangioma within the liver which has been observed by Dr. Perez. : Vaginal bleed. The patient claims that she does bleed if she skips her estrogen and progesterone pill. MUSCULOSKELETAL: Normal. SKIN AND BREAST: The patient does have a mass in the right breast, confirmed by mammograms as outpatient by her cabinetmaker apprentice. However, the patient is pending an ultrasound and the biopsy. PHYSICAL EXAMINATION: GENERAL: A moderately built female, no palpable adenopathy. HEART: Within normal limits. LUNGS: Clear. ABDOMEN: Soft. RECTAL AND VAGINAL: Deferred. CENTRAL NERVOUS SYSTEM: Essentially normal. EXTREMITIES: Essentially normal. BREASTS: Even though the CAT scan of the chest shows the mass in the breast, I could not feel the mass. LABORATORY DATA: Lab investigations of interest show the patient to have a CBC, shows a hemoglobin to be 13.2, white count of 10,950, platelets of 277,000. Chemistry shows a sodium of 139, potassium 3.7, chloride is 102, CO2 of 27, BUN 6, creatinine 0.74, total 0.7, albumin 3.7, and globulin 3.3. Urinalysis has shown moderate bacteria and the patient also has trace of blood. Imaging shows the CT of the chest which showed the patient to have filling defects in bilateral pulmonary artery bifurcations compatible with pulmonary emboli, indeterminate 614 cm mass in the right lobe of the liver, 1.5 cm asymmetric density in the right breast. Abdominal CT was done on 02/25, which confirmed the same mass, however, and Dr. Perez is aware that this is a hemangioma and he has followed up in the past. IMPRESSION: 1. History of pulmonary emboli. 2. History of hemangioma of the liver, 6.4 x 4.4 x 6.4 cm. 3. 1.5 cm density in the right breast. 4. Urinary tract infection. 5. History of ulcerative colitis. 6. History of being on estrogen and progesterone. PLAN, COMMENTS, AND SUGGESTIONS: I suggest to discontinue the pill. This patient is on heparin and Coumadin. Six months of anticoagulants and do thrombophilia profile to see if the patient would require the anticoagulants lifetime or not. Ultrasound of the breast, eventually a biopsy. I discussed this at length with her as well as with Dr. Tavo Gardner. Subsequently, I was called by the nursing staff that she had refused the Coumadin. I spoke to Dr. Tavo Gardner the following day on 02/28. She refused it again in spite of telling her what the Coumadin represents and what the new anticoagulants represent. I had a long talk with her, the daughter, and Faustina, the boyfriend, more than half an hour on 03/01. She decided after having spoken to Dr. Kory Lopes to have Eliquis. I discussed at length with Dr. Tavo Gardner that Eliquis and heparin cannot be combined together. The patient will have to be off heparin as Eliquis will work within a few hours. I have spoken to her and the family at length about the danger of bleeding. She has a history of ulcerative colitis. She also does bleed per vaginal. If she has a massive bleed, there is no antidote for the Eliquis. APCC is not available at most of the hospitals including this hospital, which is also not specific for reversing the bleeding off Eliquis. Before I sign off and have Dr. Kory Lopes follow this patient, she is going against my hematological advise. 1. She needs to have a thorough followup for her breast. 2. She needs to get off the estrogen and progesterone pills as these are known to cause: a. Thromboembolic phenomenon. b. There is a higher incidence of breast cancer as we know from the previous trials. I certainly hope that she will follow up with Dr. Jose L Honeycutt, Dr. Kory Lopes, Dr. Tavo Gardner, and her cabinetmaker apprentice. Thank you very much for allowing me to participate in the management of this patient during this hospitalization. MD NICKOLAS Lion/MODL /[id number] cc: MD Tavo Orellana MD Donald R Metz, DO Daniel H Darmadi, MD
--- NOTE | 2019-03-03 00:03 | Discharge Summary ---
HISTORY: A 58-year-old female with past medical history positive for ulcerative colitis, liver hemangioma, admitted to the emergency room with 2-day history of right upper chest pain, increased with deep breathing. She was found to have pulmonary embolism, started on Eliquis. The patient is going home today. The patient has been seen by hematology, Dr. Zuluaga, who recommended for her to be released. PHYSICAL EXAMINATION: HEART: Showed regular rhythm. Normal S1 and S2 sound. LUNGS: Clear bilaterally. EXTREMITIES: Show no evidence of cyanosis or hematoma. VITAL SIGNS: Blood pressure 97/46, temperature 37.6, heart rate 63 per minute, respiratory rate 20 per minute, O2 saturation 100%. LABORATORY DATA: On the BMP; sodium 137, potassium 3.5, chloride 101, CO2 of 27, BUN 5, creatinine 0.71, glucose 103. On the CBC; white blood count 7.35, hemoglobin 11.6, hematocrit 35.3, and platelet count 203,000. PT 13.7, INR 1.00, PTT 55.7. AST 9, ALT 9, total bilirubin 0.6, alkaline phosphatase 64. FINAL IMPRESSION: 1. Pulmonary embolism. 2. Positive history of ulcerative colitis. 3. Liver hemangioma. PLAN OF TREATMENT: The patient will continue with Eliquis 5 mg twice a day. Continue with Amitiza 24 mcg p.o. twice a day, mesalamine 1.5 g daily, and Protonix 40 mg daily. The patient is going to be followed by Dr. Tavo Gardner as an outpatient, Dr. Perez, rail track layer, also Dr. Zuluaga, hemato-oncologist. MD JESENIA De Los Santos/ANTONINO /[id number]
--- NOTE | 2019-03-04 05:14 | Consultation ---
DATE OF CONSULTATION: 03/02/2019 HISTORY OF PRESENT ILLNESS: Thank you very much for asking me to see Marie Valentino. She is a 58-year-old who came in complaining of chest pain to the ER and was found to have pulmonary embolus about four days ago. She had a history of varicose veins and was scheduled for surgical therapy in the near future. In the hospital, heparin was started and she had vaginal bleeding for two days, but now it almost stopped completely. PAST MEDICAL HISTORY: Significant for hemangioma, gallbladder stones. PAST SURGICAL HISTORY: History of breast lumpectomies, cervical precancerous lesions, and probably colon biopsy, also removal of cyst of the spinal cord. MEDICATIONS: She is on heparin, but also been on hormone replacement therapy with both estrogen and progesterone for five years. SOCIAL HISTORY: Denies smoking, alcohol, drug abuse. PHYSICAL EXAMINATION: VITAL SIGNS: Stable. CHEST: Clear to auscultation. CARDIOVASCULAR: Regular rate and rhythm. ABDOMEN: Soft, nontender. ASSESSMENT AND PLAN: A 58-year-old with pulmonary embolism and abnormal uterine bleeding. The patient has been on HRT for a while. At this stage, I would wait until her recovery and discharge from the hospital for the PE and to probably stop her hormone replacement therapy that could be a contributing factor to her pulmonary embolus. Also, if her bleeding continues in the future to have an endometrial biopsy. The patient understands the plan very well. However, she has her own digital project manager downtown and she will be consulting him after her discharge from the hospital. Once again, thank you very much for asking me to see this patient. Please do not hesitate to call me if I can be of any further help in the future. Tiesha Mcneil MD DD/ANTONINO /[id number] cc: Dr. Alex Gardner
== END 2019-03-02 15:58 | disposition home or self-care (01) | DRG 176 ==
LOC: ER 15:31 → ERHOLD 21:27 → MED/SURG2 02-26 13:59
DX: I26.99 Other pulmonary embolism without acute cor pulmonale (principal); K51.90 Ulcerative colitis, unspecified, without complications; D18.03 Hemangioma of intra-abdominal structures; N93.9 Abnormal uterine and vaginal bleeding, unspecified; N63.0 Unspecified lump in unspecified breast; I83.90 Asymptomatic varicose veins of unspecified lower extremity; Z79.890 Hormone replacement therapy
CPT/HCPCS: 36415; 71260; 74177; 80048; 80053; 81001; 81025; 82550; 82553; 84484; 85025; 85379; 85610; 85730; 93005; 93306; 93970; 94640; 99284; J1170; J1644; J1885; J2405; J3480; J7050; Q0162; Q9967

== ENCOUNTER → 2020-03-03 | Outpatient (CLI) | payer MEDICARE, OTHER ==
[~2020-03-03] MED LIST: ELIQUIS5 MG PO; ESCITALOPRAM OX10 MG PO; ESTRADIOL1 MG PO; NEXIUM40 MG PO; PROGESTERONE100 MG PO; SUCRALFATE1 GM PO
== END ==
LOC: RAD 12:01
PROVIDERS: ATTEND Family Medicine
DX: R07.81 Pleurodynia (principal)
CPT/HCPCS: 71046

== ENCOUNTER → 2021-04-19 | Outpatient (CLI) | payer MEDICARE, OTHER | LOC: MRI 10:48 | PROVIDERS: ATTEND Family Medicine | DX: M50.90 Cervical disc disorder, unspecified, unspecified cervical region (principal) | CPT/HCPCS: 72141 ==

== ENCOUNTER → 2021-05-18 | Outpatient (CLI) | payer MEDICARE, OTHER | LOC: CT 16:00 | PROVIDERS: ATTEND Internal Medicine Gastroenterology | DX: R10.13 Epigastric pain (principal); D18.03 Hemangioma of intra-abdominal structures; R11.0 Nausea; K21.9 Gastro-esophageal reflux disease without esophagitis; K58.9 Irritable bowel syndrome, unspecified; Z80.0 Family history of malignant neoplasm of digestive organs | CPT/HCPCS: 74177 ==